=== PATIENT | female | born 1960 | race Caucasian/White ===

== ENCOUNTER 2020-12-20 14:02 | Outpatient (CLI) | payer OTHER ==
--- NOTE | 2020-12-20 16:03 | XRAY Report ---
PROCEDURE: Ankle 3 View RT INDICATIONS: R ANKLE INJURY FROM A FALL TECHNIQUE: 3 views of the ankle were acquired. COMPARISON: None FINDINGS: Bones: No fractures or dislocations. Ankle mortise is normally aligned. No suspicious bony lesions . Soft tissues: Prominent lateral ankle edema.. Achilles tendon appears normal. IMPRESSION: Prominent lateral ankle edema. No visualized acute fracture or dislocation. However, occ ult injury cannot be excluded. Recommend short interval imaging follow-up in 7-10 days as clinically indicated for additional evaluation. Reviewed by: Ruth Giron MD on 12/20/2020 4:02 PM PDT Approved by: Ruth Giron MD on 12/20/2020 4:02 PM PDT Station ID: [id number]
== END 2020-12-20 23:59 | disposition home or self-care (01) ==
LOC: DI.N 14:02
PROVIDERS: ATTEND Nurse Practitioner
DX: S99.911A Unspecified injury of right ankle, initial encounter (principal)